=== PATIENT | male | born 2000 | race Caucasian/White ===

== ENCOUNTER 2020-08-08 22:31 | Emergency (ER) | payer OTHER, SELFPAY ==
--- NOTE | ~2020-08-08 | XR_ITS ---
EXAMINATION: XR chest 2V DATE: 08/08/2020 23:06 INDICATION: 4 days of cough and fever. Loss of taste and smell. TECHNIQUE: PA and lateral views of the chest were obtained. COMPARISON: None FINDINGS: The lungs are clear with no focal airspace opacities, pulmonary edema, pleural effusion or pneumothor ax. The cardiomediastinal silhouette is normal. Visualized bones and soft tissues are unremarkable. IMPRESSION: 1. No acute cardiopulmonary disease. Reviewed, dictated and finalized at location A.
[2020-08-08 22:37] VITALS: BP 132/64; PULSE 98; RESP 18; TEMP 38.2; O2SAT 99
[2020-08-09] MEDS: ACETAMINOPHEN 500 MG TABLET 1000 MG PO (00:53)
[2020-08-09 01:17] VITALS: TEMP 37.1
[2020-08-09 01:18] VITALS: RESP 16
--- NOTE | 2020-08-09 01:22 | ED.FEVER ---
HPI - Fever General Chief Complaint: Fever Stated Complaint: fever, nausea, cough, diarrhea Time Seen by Provider: 08/09/20 00:20 History of Present Illness HPI Narrative: Patient is a 20-year-old male who presents ER with concerns for COVID-19. Patient began feeling unwell about 5 days ago. Over the last 2 to 3 days he is a loss of smell and taste. He has had body aches as well as fever. He has a nonproductive cough. He occasionally gets stomach cramps with diarrhea. No known sick contacts. He is not vaccinated. No alleviating factors. Related Data Home Medications Medication Instructions Recorded Confirmed No Home Medications 08/08/20 08/08/20 Allergies Allergy/AdvReac Type Severity Reaction Status Date / Time No Known Allergies Allergy Verified 08/08/20 22:32 Review of Systems Review of Systems: All systems reviewed & are unremarkable except as noted in HPI and below Constitutional: Constitutional: Reports fatigue and Reports fever(s) ENT: Denies nasal congestion and Denies sore throat Comments: Loss of taste and smell Cardiovascular: Cardiovascular: Denies chest pain and Denies radiating jaw, neck or arm pain Respiratory: Respiratory: Reports cough, Denies dyspnea and Denies wheezing Gastrointestinal: Gastrointestinal: Denies abdominal pain, Reports diarrhea and Reports nausea PMFSH Past Medical History Medical History (Updated 08/09/20 @ 01:26 by Abdirizak Hernández MD) Healthy adult male Surgical History Surgical History (Updated 08/09/20 @ 01:24 by Abdirizak Hernández MD) No history of previous surgery Exam Narrative: Exam Narrative: GENERAL: Fatigued-appearing, well-nourished, and in no acute distress. HEAD: Normocephalic, atraumatic. CHEST: Clear to auscultation. No respiratory distress. Frequent coughing HEART: Regular rate and rhythm. Normal peripheral pulses. EXTREMITIES: Normal range of motion. No edema. SKIN: Warm, dry, no rash. NEURO: Alert and oriented x3. PSYCH: Normal mood and affect. Course HOUSECALLS NURSE/PA Physician Supervision Discussed self-isolation. Discussed return precautions. Discharge home. Vital Signs Vital signs: Vital Signs Temperature 100.8 F H 08/08/20 22:37 Pulse Rate 98 08/08/20 22:37 Respiratory Rate 18 08/08/20 22:37 Blood Pressure 132/64 08/08/20 22:37 Pulse Oximetry 99 08/08/20 22:37 Temperature 98.8 F 08/09/20 01:17 Pulse Rate 98 08/08/20 22:37 Respiratory Rate 16 08/09/20 01:18 Blood Pressure 132/64 08/08/20 22:37 Pulse Oximetry 99 08/08/20 22:37 MDM - Fever Imaging Data My impression: Chest x-ray: No acute cardiopulmonary process. Discharge Plan Discharge Clinical Impression: Person under investigation for COVID-19 Patient Disposition: Home, Self-Care Condition: Stable Instructions: COVID-19 (Coronavirus Disease 2019) (ED) Additional Instructions: You are displaying symptoms of COVID-19. Return to the ER if you cannot breathe, you cannot keep down food or water, or you have additional concerns. Self isolate until you receive a negative Covid test, or if you are positive wait until you are cleared by the health department. Take Tylenol and ibuprofen as needed for body aches and fever. Make sure to stay hydrated. Prescriptions: No Action No Home Medications RF: 0 Follow-up/Referrals: Andreas,Aarti Kaplan MD [Primary Care Provider] - 1 Week
== END 2020-08-09 01:32 | disposition home or self-care (01) ==
PROVIDERS: Emergency Provider Emergency Medicine; PCP Pediatrics Adolescent Medicine
DX: R43.8 Other disturbances of smell and taste (principal); Z20.822 Contact with and (suspected) exposure to COVID-19
CPT/HCPCS: 71046; 99283; A9270; C9803; U0003; U0005

== ENCOUNTER 2022-07-09 14:03 | Emergency (ER) | payer OTHER, SELFPAY ==
--- NOTE | ~2022-07-09 | XR_ITS ---
EXAM: XR wrist RT min 3V, XR hand RT min 3V DATE: 07/09/2022 14:56 (accession [id number]), 07/09/2022 14:55 (accession [id number]) HISTORY: fall, landed on both palms, pain in 4th 5th metacarpals . COMPARISON: None available. FINDINGS: Normal mineralization. Mildly comminuted fractures of the proximal aspect of the right fif th metacarpal, with 3 mm medial (ulnar) displacement. No other fracture. No dislocation. No lytic or blastic lesion. Joint spaces are maintained. No erosion or periosteal change. Soft tissues within nor mal limits. IMPRESSION: Mildly displaced fracture the proximal aspect of the right fifth metacarpal. Reviewed, dictated and finalized at location K. IMPRESSION: Mildly displaced fracture the proximal aspect of the right fifth me tacarpal.
[2022-07-09 14:11] VITALS: BP 150/82; PULSE 67; RESP 15; TEMP 36.5; O2SAT 98
--- NOTE | 2022-07-09 15:31 | ED.GENADULT ---
HPI - General Adult General Chief complaint: Fall Stated complaint: hand pain Time Seen by Provider: 07/09/22 14:24 History of Present Illness HPI narrative: Sudhakar Mc is a 22 y/o male who presents with report of a same level mechanical fall at around midnight today. He fell with his hands outstretched. He came in today with complaints of continued paint to his right fifth finger. Denies hitting his head/ no loc. No other injuries. Related Data Allergies Allergy/AdvReac Type Severity Reaction Status Date / Time No Known Allergies Allergy Verified 07/09/22 14:04 Review of Systems Review of Systems: CONSTITUTIONAL: Denies fever, chills, or sweats. EYES: Denies visual changes, redness, or discharge. ENT: Denies rhinorrhea, congestion, sore throat, or otalgia. CARDIOVASCULAR: Denies chest pain, palpitations, or edema. RESPIRATORY: Denies cough or dyspnea. GASTROINTESTINAL: Denies abdominal pain, nausea, vomiting, or diarrhea. GENITOURINARY: Denies dysuria or hematuria. SKIN: Denies rash or itching. MUSCULOSKELETAL: Denies back pain, complains of pain to right fifth digit and right wrist NEUROLOGIC: Denies headache, numbness, dizziness, or weakness. PSYCHIATRIC: Denies anxiety or depression. [facility] Past Medical History Medical History Healthy adult male Surgical History Surgical History No history of previous surgery Exam Narrative: GENERAL: Well-appearing, well-nourished, and in no acute distress. HEAD: Normocephalic, atraumatic. EYES: PERRLA and EOMI. ENT: Nares clear, no rhinorrhea or epistaxis. Mucous membranes moist. Oropharynx without tonsillar hypertrophy exudate or other lesions. NECK: Supple. No adenopathy or masses. No carotid bruits or JVD CHEST: Clear to auscultation. No respiratory distress. No wheezes rales or rhonchi HEART: Regular rate and rhythm. No murmur heard. Normal peripheral pulses. ABDOMEN: Soft, nontender, nondistended, normal active bowel sounds. EXTREMITIES: Normal range of motion. No edema. Pain with palpation to right fifth digit and right wrist. ROM intact neurovascular intact SKIN: Warm, dry, no rash. NEURO: No focal deficits. Alert and oriented x3. PSYCH: Normal mood and affect. Course Vital Signs Vital signs: Vital Signs Temperature 36.5 C 07/09/22 14:11 Pulse Rate 67 07/09/22 14:11 Respiratory Rate 15 07/09/22 14:11 Blood Pressure 150/82 H 07/09/22 14:11 Pulse Oximetry 98 07/09/22 14:11 Temperature 36.5 C 07/09/22 14:11 Pulse Rate 67 07/09/22 14:11 Respiratory Rate 15 07/09/22 14:11 Blood Pressure 150/82 H 07/09/22 14:11 Pulse Oximetry 98 07/09/22 14:11 Vitals reviewed by me. Medical Decision Making MDM Narrative Medical decision making narrative: On exam pt is noted to have bilateral gomez abrasions Pain with palpation to right fifth digit and right wrist ROM intact two point discrimination completed and neurovascular intact NO numbness/ tingling noted Pulses are strong No snuff box tenderness with pain Concern for : wrist fracture/ Right fifth digit fracture/ Hand contusion / finger dislocation/scaphoid fracture x ray is showing a Mildly displaced fracture the proximal aspect of the right fifth metacarpal. Updated pt on the x ray results. Collaborated with Dr. Jansen and he recommends an ulnar gutter splint with follow up hand specialist Patient agrees with this plan Ulnar gutter splint placed, pt tolerated well and pt reports feeling well Splint checked and pt remains neurovascular intact Strict return instructions provided for any signs of numbness/tingling/increased pain Splint instructions given and pt verbalizes understanding. Continue to take the Naproxen twice daily as ordered to help with inflammation and pain Continue to wear your splint until you follow up with the H
== END 2022-07-09 16:57 | disposition home or self-care (01) ==
PROVIDERS: Emergency Provider Nurse Practitioner Family
DX: S62.396 Other fracture of fifth metacarpal bone, right hand (principal); W18.30XA Fall on same level, unspecified, initial encounter
CPT/HCPCS: 29125; 73110; 73130; 99284; A4565; A9270

== ENCOUNTER 2024-12-04 09:34 | Outpatient (CLI) | payer OTHER, SELFPAY ==
--- OUTSIDE RECORDS SUMMARY | 2020-01-12 12:01 | XMS_ITS | Continuity of Care Document ---
Author Organization [facility] Address [address] [place] [address] Phone Care Team Providers Care Uniform Force Captain Name Role Phone Unavailable Unavailable Unavailable Denilson RN, Angi Unavailable Unavailable Advance Directives Directive Yes / No Effective Date File Name No Information Encounters Encounter Description Practice Location Reason(s) For Visit Diagnoses Date Provider Providers Copied on Encounter [facility] , [address], [place], [place], [id number], tel:[phone] [facility] No Information 0 No Information Consulting Provider: Angi Oreilly, [address], [place], [address]. tel:[phone] Family History Family Member Type Diagnosis Age At Onset No Information Payers Payer name Insurance type Covered constitution party ID Authoriza tion(s) No Information Social History Type Description Quantity Date Captured Comments Sex Male Smoking Status No Information Chief Complaint And Reason For Visit No Information Reason For Referral Reason For Referral No Information History Of Present Illness Encounter Date Complaint History Of Prese nt Illness No Information Functional Status Date Functional Assessmen t No Information Instructions Date Instruction Additional Infor mation No Information Assessments Type Assessment Date No Information Patient Care Teams Name Effective Dates (start - stop) Status Members No Information
--- NOTE | ~2024-12-04 | US_ITS ---
ULTRASOUND ABDOMEN LIMITED (RIGHT UPPER QUADRANT) Clinical History: elevated liver enzymes Comparison: None Technique: Right upper quadrant sonography Findings: Liver: Normal size. Echogenic. No intrahepatic biliary ductal dilatation. Normal hepatopedal flow main portal vein. Common Duct: Normal caliber. 3 mm. Gallbladder: No stones. No wall thickening. No pericholecystic fluid. Pancreas: Mostly obscured by bowel gas. IMPRESSION: 1. No acute findings. 2. Hepatic steatosis and/or hepatocellular disease. Reviewed, dictated and finalized at location R.
--- OUTSIDE RECORDS SUMMARY | 2024-12-04 10:36 | XMS_ITS | Clinical Summary ---
Author Organization [facility] Address [address] [place] [address] Care Team Providers Care Slitter Cut Off Operator Name Role Phone Aileen Johns MD Primary Care Provider Allergies No known active allergies Medications acetaminophen (TYLENOL) 500 mg tablet Take 1 tablet (500 mg total) by mouth every 6 (six) hours as needed 09/20/2012 Active escitalopram (LEXAPRO) 20 mg tablet Take 1 tablet (20 mg total) by mouth daily 06/14/2022 Active naproxen (NAPROSYN) 500 mg tablet 500 MG ORALLY TWICE A DAY NEEDED FOR PAIN 07/09/2022 Active traMADoL (ULTRAM) 50 mg tablet Take 1-2 tablets every 4-6 hours as needed for pain. 30 tablet 07/12/2022 Active albuterol HFA (PROVENTIL HFA,VENTOLIN HFA,PROAIR HFA) 90 mcg/actuation inhaler Inhale 2 puffs every 6 (six) hours as needed for wheezing Active acetaminophen-c odeine (TYLENOL with CODEINE #3) 300-30 mg per tablet Take 1-2 tablets by mouth every 6 (six) hours as needed for pain 30 tablet 07/18/2022 Active Active Problems Problem Noted Date Diagnosed Date Right hand pain 07/12/2022 Closed displaced fracture of base of fifth metacarpal bone of right hand 07/12/2022 Pyogenic granuloma 09/20/2012 07/12/2022 Surgical History Surgery Date Site/Laterality Comments MASS EXCISION 02/19/2011 - 02/19/2012 MASS REMOVED FROM FACE, STATES ANESTHESIA REACTION??? FINGER CLOSED REDUCTION W/ PERCUTANEOUS PINNING 07/18/2022 Right 5th Medical History Medical History Date Comments Hard to intubate HAD TO BE INTUB ATED FOR MINOR SURGERY/FACIAL SWELLING, SORE THRAOT Asthma Seizures (HCC) LAST SEIZURE 202 0 Obesity CP (cerebral palsy) 'I OUTGREW I T Social History Tobacco Use Types Packs/Day Years Used Date Smoking Tobacco: Never Smokeless Tobacco: Never Tobacco Cessation:Counseling Given: Not Answered AUDIT-C Answer Date Recorded Q1: How often do you have a drink containing alc ohol? 2-4 times a month 07/18/2022 Q2: How many drinks containi ng alcohol do you have on a typical day when you are drinking? 5 or 6 07/18/2022 Q3: How often do you have si x or more drinks on one occasion? Monthly 07/18/2022 Personal Safety Answer Date Recorded Have you ever been in or are you currently in a harmful physical or emotional relationship or is someone making you feel afraid or unsafe? 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 Gender Identity Not on file Sexual Orientation Not on file Obstetrics History Last Filed Vital Signs Vital Sign Reading Time Taken Comments Blood Pressure 129/77 07/18/2022 4:15 PM CDT Pulse 65 07/18/2022 4:15 PM CDT Temperature 36.6 C (97.8 F) 07/18/2022 3:45 PM CDT Respiratory Rate 18 07/18/2022 4:15 PM CDT Oxygen Saturation 95% 07/18/2022 4:15 PM CDT Inhaled Oxygen Concentration - - Weight 131.5 kg (290 lb) 07/13/2022 12:10 PM CDT Height 190.5 cm (6' 3) 07/13/2022 12:10 PM CDT Body Mass Index 36.25 07/13/2022 12:10 PM CDT Plan of Treatment Health Maintenance Due Date Last Done Comments Depression Screening 2000 Hepatitis C Screening 2000 Regular Well Visit/Exam 18-64 01/10/2018 DTaP/Tdap/Td Vaccine (7 - Td or Tdap) 08/21/2021 08/22/2011, 06/07/2005, 04/18/2001, Additional history exists Covid-19 Vaccine ( season) 2024 10/25/2020 Influenza Vaccine (#1) 2024 3, 12/07/2010, 11/26/2008, Additional history exists Pneumococcal vaccine <65 Aged Out 001, 2000, 2000 No longer eligible based on patient's age to complete this topic Varicella Vaccines Completed 09/03/2008, 1 2000, 2000 Hepatitis B Screening Completed 06/10/2014 , 2000, 2000, Additional history exists HPV Vaccines Completed 09/13/2015, 07/21, 08/22/2011 Medical Devices Implanted Type Area Clinical Assistant Device Identifier Shelf Expiration Date Model / Serial / Lot [employer] Melchor .062in 9in 2 [employer] Fixation [id number] - [id number] Implanted:Qty: 2 on 07/18/2022 by Mo Agudelo MD at [facility] Right: Hand [employer] [id number] / / Insurance [facility] Care Teams Slitter Cut Off Operator Relationship Specialty Start Date End Date Aileen Johns MD PCP - General Family Medicine 07/13/22
== END 2024-12-04 09:35 | disposition home or self-care (01) ==
PROVIDERS: PCP Internal Medicine; Visit Provider Internal Medicine
DX: R74.8 Abnormal levels of other serum enzymes (principal); K76.0 Fatty (change of) liver, not elsewhere classified
CPT/HCPCS: 76705